=== PATIENT | male | born 1955 | race Caucasian/White ===

== ENCOUNTER → 2020-05-12 13:30 | Outpatient (CLI) | payer OTHER, SELFPAY ==
[2020-05-13 16:17] LABS: Covid-19 Nasal PCR Sendout UK Not Detected
== END ==
PROVIDERS: Visit Provider Nurse Practitioner
DX: Z03.818 Encounter for observation for suspected exposure to other biological agents ruled out (principal)
CPT/HCPCS: U0003

== ENCOUNTER → 2020-10-17 09:47 | Outpatient (CLI) | payer OTHER, SELFPAY ==
--- NOTE | 2020-10-17 09:57 | MR_ITS ---
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 SYMPTOMS [id number]. NO INJURY. COMPARISON: No exams were available for comparison TECHNIQUE: Routine multiplanar multi echo sequences are performed without and with gadolinium enhancement. FINDINGS: No midline shift, mass effect, intracranial hemorrhage, or hydrocephalus is evident. The cerebellopontine angles, cerebellum and brainstem have an unremarkable appearance.. Scattered small foci T2 hyperintensity is present in the evan which are nonspecific. No enhancing lesions are evident. The pituitary, optic chiasm, corpus callosum, and craniocervical junction have an unremarkable appearance. There is mild mucosal thickening of the right maxillary sinus and ethmoid sinuses with moderate leftward nasal septal deviation. Small amount of fluid signal is present in the left mastoid sinus. IMPRESSION: 1. No acute intracranial findings. 2. There are scattered T2 hyperintensities within the evan which may be related to ischemic gliotic change from microvascular disease Dictated by: Christiano Dalal MD 10/18/2020 20:53 Christiano Dalal MD in [place] 10/18/2020 20:53
[2020-10-17 10:25] LABS: Basophils # 0.1 K/mm3 (0-0.2); Basophils % 1.1 % (0.1-2.0); Eosinophils # 0.3 K/mm3 (0.0-0.4); Hematocrit 46.7 % (42.0-52.0); Hemoglobin 15.6 g/dL (14.1-18.0); Lymphocytes # 1.6 K/mm3 (0.7-4.5); Lymphocytes % 27.9 % (10-50); Mean Corpuscular HGB Conc 33.3 g/dL (31.8-35.4); Mean Corpuscular Hemoglobin 29.6 pg (27.0-31.2); Mean Corpuscular Volume 88.8 fl (80-94); Mean Platelet Volume 7.1 fl (7.4-10.4); Monocytes # 0.4 K/mm3 (0.1-1.0); Monocytes % 6.3 % (1.7-9.3); Neutrophils # 3.4 K/mm3 (1.8-7.8); Neutrophils % 59.8 % (37.0-80.0); Platelet Count 316 K/mm3 (142-424); Red Blood Count 5.26 M/mm3 (4.60-6.20); Red Cell Distribution Width 13.6 % (11.5-17.5); White Blood Count 5.6 K/mm3 (4.8-10.8)
[2020-10-17 10:37] LABS: Chloride 102 mmol/L (98-107)
[2020-10-17 10:38] LABS: Potassium 4.9 mmoL/L (3.5-5.1); Sodium 139 mmol/L (136-145)
[2020-10-17 10:40] LABS: Blood Urea Nitrogen 9 mg/dl (9-20); Estimated Glomerular Filt Rate 85 ml/min (>60); GFR (African American) 103 ML/MIN (>60)
[2020-10-17 10:41] LABS: Anion Gap 8.9 mEq/L (5-15); Calcium 9.9 mg/dl (8.4-10.2); Carbon Dioxide 33 mmol/L (22.0-30.0); Chol/HDL Ratio 4.6 (1-3.5); Cholesterol 204 mg/dl (140-200); Glucose 116 mg/dl (74-100); HDL Cholesterol 44 mg/dl (40-60); Triglycerides 92 mg/dl (30-150); VLDL Cholesterol 18 mg/dL (0-40)
[2020-10-17 10:47] LABS: C-Reactive Protein 4.2 mg/L (0-4)
[2020-10-17 10:49] LABS: Erythrocyte Sedimentation Rate 13 mm/hr (0-20)
[2020-10-17 10:52] LABS: Direct LDL Cholesterol 122.16 mg/dL (100-129)
[2020-10-19 15:02] LABS: Antinuclear Antibodies, IFA Negative (.)
== END ==
PROVIDERS: Visit Provider Family Medicine Addiction Medicine
DX: H46.8 Other optic neuritis (principal)
CPT/HCPCS: 36415; 70553; 80048; 80061; 82565; 84520; 85025; 85651; 86038; 86140; A9576

== ENCOUNTER → 2021-09-24 16:02 | Outpatient (CLI) | payer OTHER, SELFPAY | PROVIDERS: Visit Provider Nurse Practitioner | DX: U07.1 COVID-19 (principal) | CPT/HCPCS: C9803; U0003; U0005 ==

== ENCOUNTER 2023-03-20 17:10 | Emergency (ER) | payer OTHER, SELFPAY ==
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
[2023-03-20 17:16] VITALS: BP 123/74; PULSE 86; RESP 16; TEMP 36.1; O2SAT 95
--- NOTE | 2023-03-20 17:19 | PC.NURSE ---
C/T/L spine inspected by . C-spine cleared by . C-collar taken off by .
[2023-03-20 17:21] VITALS: BMI 22.2
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
[2023-03-20 18:01] VITALS: BP 130/77; PULSE 84; RESP 16; TEMP 36.1; O2SAT 94
== END 2023-03-20 18:04 | disposition home or self-care (01) ==
LOC: ER 17:46
PROVIDERS: Emergency Provider Emergency Medicine
DX: Z04.1 Encounter for examination and observation following transport accident (principal); F17.210 Nicotine dependence, cigarettes, uncomplicated
CPT/HCPCS: 99281; 99282

== ENCOUNTER 2024-01-08 14:56 | Emergency (ER) | payer MEDICARE, SELFPAY ==
[2024-01-08 15:15] VITALS: BP 138/76; PULSE 87; RESP 21; TEMP 36.6; O2SAT 100; BMI 20.6
--- NOTE | 2024-01-08 15:24 | XR_ITS ---
FINAL REPORT CLINICAL HISTORY: pain in hip FINDINGS: RIGHT HIP Two views of the right hip demonstrate no acute fracture or dislocation. There is a lucent lesion with thin sclerotic margin in the right lateral femoral neck measuring up to 25 mm which may present bone cyst as a sequela of chronic femoral acetabular impingement. The visualized bony structures are well aligned. No soft tissue abnormality is seen. IMPRESSION: Findings suggestive of femoral acetabular impingement as above. Reviewed, Interpreted and Dictated by Jessi Fung MD Transcribed by Juliet Marie Authenticated and [facility]
--- NOTE | 2024-01-08 15:44 | EXP.UTC ---
Discharge Plan Disposition Patient Disposition: Home, Self-Care Condition: Good Prescriptions Prescriptions: New ibuprofen 600 mg tablet 600 mg PO Q6HP PRN (Reason: Moderate Pain) Qty: 20 0RF Referrals Follow up/Referrals: Jarred Mendez DO [Staff Physician] - See instructions Provider,Referral, [Primary Care Provider] - See instructions Activity Restrictions/Add. Instructions Additional Instructions/Restrictions: *weight bearing as tolerated *Remember you had a Toradol shot in the clinic today, which is similar to Motrin/Ibuprofen so do not start Ibuprofen until tomorrow *RICE, Rest the extremity, Ice 15-20 minutes 3-4 times daily, Compress- wear the lida wrap as discussed as much as possible to help reduce swelling and pain, Elevate the extremity when at rest *Elevate when resting? *Ibuprofen 600mg 6-8 hours as needed for pain an inflammation. If need something more can take Tylenol in between doses of Ibuprofen to help Call and make appointment with Orthopedics for further evaluation and treatment Clinical Impressions Clinical Impression: Femoral acetabular impingement Instructions Patient Instructions: DI for Sciatica, DI for Hip Pain Discharge ED Provider: Vita Hillman [facility] General Stated complaint: R leg pain Mode of Arrival: Ambulatory Source of Information: Patient Limitations: No Limitations Time Seen by Provider: 01/08/24 15:44 Description of Symptoms (Recalled from Triage Doc. by RN): [place] C/O PAIN TO RIGHT HIP THAT RADIATES DOWN LEG THAT STARTED 2 DAYS AGO. NO KNOWN INJURY HEENT Symptoms (Recalled from RN notes): No Resp Symptoms (Recalled from RN notes): No Skin Symptoms (Recalled from RN notes): No MS Symptoms (Recalled from RN notes): Yes Functional Status (Recalled from RN notes): WNL History of Present Illness Provider Complaint: Patient states that he has been having pain in his right hip/buttock area that radiates down leg with movement and walking denies known injury Denies loss of control of bowel or bladder Related Data Previous Rx's Medication Instructions Recorded ibuprofen 600 mg tablet 600 mg PO Q6HP PRN Moderate Pain 01/08/24 #20 tabs Allergies Allergy/AdvReac Type Severity Reaction Status Date / Time No Known Allergies Allergy Unverified 08/25/17 14:01 Worker's Comp Is this a Worker's Comp case?: No [facility] Disclaimer: The information contained in this section may have been updated after the patient was seen, as this information can be updated by other users. Medical History (Updated 01/08/24 @ 16:49 by Vita Hillman APRN) No significant past medical history Social History Smoking Status: Current every day smoker tobacco type: cigarettes packs per day: 1 second hand exposure: Yes alcohol intake: never current occupational status: other Travel in the last 8 weeks: None household members: other housing: house ROS Obtained: Yes All systems reviewed & no additional complaints except as documented and Yes Systems reviewed as appropriate & no additional complaints except as documented Constitutional Constitutional: Reports system reviewed and no additional complaints, except as documented and Reports as per HPI ENT Ears, Nose, Mouth, and Throat: Reports system reviewed and no additional complaints, except as documented and Reports as per HPI Cardiovascular Cardiovascular: Reports system reviewed and no additional complaints, except as documented and Reports as per HPI Respiratory Respiratory: Reports system reviewed and no additional complaints, except as documented and Reports as per HPI Gastrointestinal Gastrointestingal: Reports system reviewed and no additional complaints, except as documented and as per HPI Musculoskeletal Musculoskeletal: Reports system reviewed and no additional complaints, except as documented, Reports as per HPI and Reports other Comments: Pain in right hip/buttock area that radiates into right leg worse with movement, sitting on that side or laying on that side Physical Exam General General appearance: alert and in no apparent distress ENT ENT exam: Present mucous membranes moist Respiratory Respiratory exam: Present normal lung sounds bilaterally; Absent respiratory distress or wheezes Cardiovascular Cardiovascular exam: Present regular rate, normal rhythm and normal heart sounds Back Exam Back exam: Present sciatic notch tenderness (R) Back 1 view image: 1. reports pain with palpation that radiates from right buttock/hip area down into right leg worse with movement, walking and sitting/laying on that side denies loss of control of bowel or bladder Neurological Exam Neurological exam: Present alert and oriented X3 Medical Decision Making Kevin Inquiry Pt receiving controlled substance: No Kevin was queried for this patient: No Vital Signs: 01/08/24 15:15 Temperature 97.9 F Temperature Source Oral Pulse Rate [Left Brachial] 87 Respiratory Rate 21 Blood Pressure [Left Arm] 138/76 Blood Pressure Mean [Left Arm] 96 Blood Pressure Source [Left Arm] Automatic Cuff Blood Pressure Position [Left Arm] Sitting 02 Sat by Pulse Oximetry 100 Oxygen Delivery Method Room Air Orders (Tests/Meds): ORDERS Category Date Time Status Hip XR right minimum 2 views [XR hip RT 2-3V w/pelvis] Exams 01/08/24 15:24 Ordered Stat Radiology Data #1: Image(s): Hip Image Reviewed: Yes I have reviewed radiologist's interpretation IMPRESSION: Findings suggestive of femoral acetabular impingement as above.
[2024-01-08] MEDS: KETOROLAC 60MG/2ML VIAL 60 MG IM (16:51)
[2024-01-08] MEDS: METHYLPREDNISOLONE SOD SUCC 125MG VIAL 125 MG IM (16:51)
[2024-01-08 16:54] VITALS: BP 138/76; PULSE 87; RESP 21; TEMP 36.6; O2SAT 100
== END 2024-01-08 17:08 | disposition home or self-care (01) ==
PROVIDERS: Emergency Provider Nurse Practitioner
DX: M25.551 Pain in right hip (principal); M24.851 Other specific joint derangements of right hip, not elsewhere classified
CPT/HCPCS: 73502; 96372; 99204; 99212; G0463

== ENCOUNTER 2024-01-21 15:24 | Emergency (ER) | payer MEDICARE, SELFPAY ==
[2024-01-21 16:00] VITALS: BP 131/78; PULSE 70; RESP 18; TEMP 36.6; O2SAT 100; BMI 23.6
--- NOTE | 2024-01-21 16:15 | EXP.UTC ---
Discharge Plan Disposition Patient Disposition: Home, Self-Care Condition: Good Prescriptions Prescriptions: New etodolac 200 mg capsule 200 mg PO Q8H PRN (Reason: pain) Qty: 20 0RF methylprednisolone [Medrol (Alon)] 4 mg tablets,dose pack See Rx Instructions .Route .COMPLEX 6 Days Qty: 21 0RF Rx Instructions: taper pack; No Action ibuprofen 600 mg tablet 600 mg PO Q6HP PRN (Reason: Moderate Pain) Qty: 20 0RF Referrals Follow up/Referrals: Coty Kim PA [Primary Care Provider] - See instructions Zelalem Ritter [Referring] - See instructions (Office will be calling you with appointment, if they dont call you in the next couple of days call them) Activity Restrictions/Add. Instructions Additional Instructions/Restrictions: Start oral Etodolac and Oral steriods tomorrow Orthopedic will be calling you with appointment Follow up with Orthopedics as discussed and take Disk of your Xray with you If you need something else for pain you may take Tylenol Clinical Impressions Clinical Impression: Femoral acetabular impingement Instructions Patient Instructions: DI for Leg Pain, Etodolac Discharge ED Provider: Vita Hillman [facility] [place] General Stated complaint: RT hip RT leg pain Mode of Arrival: Ambulatory Source of Information: Patient Limitations: No Limitations Time Seen by Provider: 01/21/24 16:24 Description of Symptoms (Recalled from Triage Doc. by RN): PATIENT C/O PAIN TO RIGHT HIP, KNEE, ANKLE AND LOWER BACK THAT STARTED ON 01/08/24 AFTER HE FELL MOWING THE YARD. PATIENT WAS SEEN IN [facility] ON 01/07 AND WAS GIVEN SHOTS AND PRESCRIPTION IBUPROFEN, BUT STATES THE MEDICATIONS DID NOT HELP THE PAIN AND IT HAS GOTTEN WORSE SINCE HEENT Symptoms (Recalled from RN notes): No Resp Symptoms (Recalled from RN notes): No Skin Symptoms (Recalled from RN notes): No MS Symptoms (Recalled from RN notes): Yes Functional Status (Recalled from RN notes): WNL History of Present Illness Provider Complaint: Patient states that he has been having pain in his right hip that goes down into right upper leg for awhile but got worse since the 3rd States he was seen in [facility] and recommended follow up with Orthopedics but he hasnt followed up yet and today he was having pain again in his right hip/buttock area that goes down into right upper leg and knee and with certain movements will shoot pain throughout his leg denies new injury just wanted to get the shots he got last time as they did help Related Data Previous Rx's Medication Instructions Recorded ibuprofen 600 mg tablet 600 mg PO Q6HP PRN Moderate Pain 01/08/24 #20 tabs etodolac 200 mg capsule 200 mg PO Q8H PRN pain #20 caps 01/21/24 methylprednisolone 4 mg tablets in See Rx Instructions .Route 01/21/24 a dose pack (Medrol (Alon)) .COMPLEX 6 days #21 tabs Allergies Allergy/AdvReac Type Severity Reaction Status Date / Time No Known Allergies Allergy Unverified 08/25/17 14:01 Worker's Comp Is this a Worker's Comp case?: No [facility] Disclaimer: The information contained in this section may have been updated after the patient was seen, as this information can be updated by other users. Medical History (Updated 01/21/24 @ 16:52 by Vita Hillman APRN) No significant past medical history Social History Smoking Status: Current every day smoker tobacco type: cigarettes packs per day: 1 second hand exposure: Yes alcohol intake: never current occupational status: other Travel in the last 8 weeks: None household members: other housing: house ROS Obtained: Yes All systems reviewed & no additional complaints except as documented and Yes Systems reviewed as appropriate & no additional complaints except as documented Constitutional Constitutional: Reports system reviewed and no additional complaints, except as documented and Reports as per HPI Eyes Eyes: Reports system reviewed and no additional complaints, except as documented and Reports as per HPI ENT Ears, Nose, Mouth, and Throat: Reports system reviewed and no additional complaints, except as documented Cardiovascular Cardiovascular: Reports system reviewed and no additional complaints, except as documented and Reports as per HPI Respiratory Respiratory: Reports system reviewed and no additional complaints, except as documented and Reports as per HPI Musculoskeletal Musculoskeletal: Reports system reviewed and no additional complaints, except as documented, Reports as per HPI and Reports other Comments: Pain in right hip that shoots down right leg Denies loss of control of bowel or bladder and denies numbness or tingling Physical Exam General General appearance: alert and in no apparent distress ENT ENT exam: Present mucous membranes moist Respiratory Respiratory exam: Present normal lung sounds bilaterally; Absent respiratory distress or wheezes Cardiovascular Cardiovascular exam: Present regular rate, normal rhythm and normal heart sounds Back Exam Back exam: Present tenderness Back 1 view image: 1. reports pain in hip that shoots pain down leg worse with movement and sitting on that side Denies new injury Denies loss of control of bowel or bladder Neurological Exam Neurological exam: Present alert, oriented X3 and normal gait Medical Decision Making Kevin Inquiry Pt receiving controlled substance: No Kevin was queried for this patient: No Vital Signs: 01/21/24 16:00 Temperature 97.9 F Temperature Source Oral Pulse Rate [Right Brachial] 70 Respiratory Rate 18 Blood Pressure [Right Arm] 131/78 Blood Pressure Mean [Right Arm] 95 Blood Pressure Source [Right Arm] Automatic Cuff Blood Pressure Position [Right Arm] Sitting 02 Sat by Pulse Oximetry 100 Oxygen Delivery Method Room Air Medical Decision Narrative: Patient had xray of hip on 01/07 and showed Femoral acetabular impingement and he needs to see Orthopedics was given referral for Orthopedics but never made the appointment patient educated again that he needs to see Orthopedics for this condition and even possibly surgery, discussed with Ortho office and recommended referral to Dr Ritter whom specializes in hip, called Orthopedics and spoke with scheduling and referral was placed clinic advised would call him back with appointment
[2024-01-21] MEDS: METHYLPREDNISOLONE SOD SUCC 125MG VIAL 125 MG IM (16:51)
[2024-01-21] MEDS: KETOROLAC 60MG/2ML VIAL 60 MG IM (16:51)
[2024-01-21 17:10] VITALS: BP 131/78; PULSE 70; RESP 18; TEMP 36.6; O2SAT 100
== END 2024-01-21 17:14 | disposition home or self-care (01) ==
PROVIDERS: Emergency Provider Nurse Practitioner; PCP Student in an Organized Health Care Education/Training Program
DX: M24.851 Other specific joint derangements of right hip, not elsewhere classified (principal); M25.551 Pain in right hip; M79.651 Pain in right thigh
CPT/HCPCS: 96372; 99212; 99214; G0463